=== PATIENT | male | born 1980 | race Caucasian/White ===

== ENCOUNTER → 2017-05-19 09:21 | Outpatient (CLI) | payer OTHER, SELFPAY ==
[2017-05-19 10:29] LABS: AST(SGOT) 19 U/L (15-37); Alanine Aminotransfer ALT/SGPT 48 U/L (16-61); Albumin, Serum 3.9 g/dL (3.2-5.0); Alkaline Phosphatase 77 U/L (45-117); Anion Gap 7 (5-15); BUN 12 mg/dL (7-18); BUN/Creat Ratio 12.1 RATIO (10-20); Calcium,Total 8.9 mg/dL (8.5-10.1); Chloride 106 mmol/L (98-107); EST Glomerular Filtration Rate 90 mL/min (>60); Est Glom Filt Rate - Afr Amer 109 mL/min (>60); Globulin 3.9 g/dL (2.2-4.2); Glucose 81 mg/dL (74-106); Potassium 3.9 mmol/L (3.5-5.1); Protein, Total 7.8 g/dL (6.4-8.2); Sodium Level 140 mmol/L (136-145)
== END ==
PROVIDERS: Family Provider Family Medicine; PCP Family Medicine; Visit Provider Family Medicine
DX: N17.9 Acute kidney failure, unspecified (principal); K83.4 Spasm of sphincter of Oddi
CPT/HCPCS: 36415; 80048; 80076

== ENCOUNTER → 2017-07-16 10:46 | Outpatient (CLI) | payer OTHER, SELFPAY ==
--- NOTE | 2017-07-16 10:49 | RAD_ITS ---
STUDY: X-RAY - RIGHT ELBOW REASON FOR EXAM: Male, 37 years old. Chronic elbow pain TECHNIQUE: 3 view(s) of the elbow. COMPARISON: None. FINDINGS: Normal visualized humerus, radius and ulna. Normal radiocapitellar and ulnotrochlear articulations. The soft tissue structures are unremarkable. RAD/Elbow min 3 Views IMPRESSION: Normal x-ray examination of the elbow. Electronically Signed: Harjeet Lowe MD at 23:57 EDT , Service support ,
== END ==
PROVIDERS: Family Provider Family Medicine; PCP Family Medicine; Visit Provider Family Medicine
DX: M25.521 Pain in right elbow (principal)
CPT/HCPCS: 73080

== ENCOUNTER 2017-09-24 20:56 | Emergency (ER) | payer OTHER, SELFPAY ==
[2017-09-24 20:56] VITALS: BP 127/94; PULSE 100; RESP 16; TEMP 36.8; O2SAT 97; BMI 31.6
--- NOTE | 2017-09-24 20:56 | DT_ITS ---
This patient was seen during an EMR downtime September 17, 2017 - September 24, 2017. This patient may have a combination of paper and electronic documentation or all paper documentation. All documentation is viewable within the e-chart portion of [facility] for each patient visit.
--- NOTE | 2017-09-24 21:40 | RAD_ITS ---
STUDY: X-RAY - LEFT WRIST REASON FOR EXAM: Male, 37 years old. Pain TECHNIQUE: 3 view(s) of the wrist were obtained. COMPARISON: None. FINDINGS: There is no evidence of fracture or dislocation. There are no significant degenerative changes. There are no radiodense foreign bodies. RAD/Wrist min 3 Views IMPRESSION: No fracture or dislocation. Electronically Signed: Hilario Juan, at 22:30 EDT Tel , Service support ,
--- NOTE | 2017-09-24 22:24 | ED.VISSUMM ---
- ER Visit Summary Date of Service: 09/24/17 Chief Complaint: Left wrist sprain History of Present Illness: The patient is a 37 M who was playing catch with his son when he went to catch the ball that was in the dirt. He states that the glove hand in contact with the ground is not sure if he hyperextended the wrist but he had pain in between the radius and the ulna distally. He states this happened again and cause worsening pain he states the pain continues to hurt him. Physical Examination: Afebrile vital signs are stable Gen: Well-nourished well-developed Head: Normocephalic atraumatic Eyes: Perrl EOMI ENT: TMs clear no rhinorrhea moist mucous membranes Neck: Supple no lymphadenopathy no JVD nontender CVS: Regular rate rhythm no murmurs normal S1-S2 Respiratory: No distress clear to auscultation bilaterally chest nontender Abdomen: Soft nontender nondistended normal bowel sounds no masses Back: Nontender Extremity: The patient has tenderness to palpation distal wrist. He has pain with movement of the radius against the ulna Skin: Normal color no rash Neuro: alert orientated ?3 CN II-XII intact normal strength sensation reflexes gait cerebellar Psych: Normal affect normal mood Test Results: Wrist films were negative for fracture Emergency Department Course and Treatment: We will treat this as a wrist sprain he will follow-up if not improving. He will use a Velcro splint. Ice and ibuprofen Impression: 1. Left wrist sprain This note was generated with [employer] dictation software. It may contain incorrect words, spelling, and punctuation that were not noted in review of the chart prior to signing ED Disposition - Plan for ED Patient: Disposition: Home or Assisted Living Chief Complaint: Upper Extremity Injury Instructions: ED Sprain Wrist Referrals: Dyllan Carlson MD [Primary Care Provider] - 10-14 Days if not better
== END 2017-09-24 23:07 | disposition home or self-care (01) ==
PROVIDERS: Emergency Provider Emergency Medicine; Family Provider Family Medicine; PCP Family Medicine
DX: S63.502A Unspecified sprain of left wrist, initial encounter (principal); X58.XXXA Exposure to other specified factors, initial encounter; Y93.9 Activity, unspecified; Y92.9 Unspecified place or not applicable
CPT/HCPCS: 73110; 99283

== ENCOUNTER → 2018-01-08 22:03 | Outpatient (CLI) | payer OTHER, SELFPAY ==
[2018-01-08 23:07] LABS: AST(SGOT) 27 U/L (15-37); Alanine Aminotransfer ALT/SGPT 42 U/L (16-61); Albumin, Serum 3.8 g/dL (3.2-5.0); Alkaline Phosphatase 78 U/L (45-117); Bilirubin, Direct < 0.05 mg/dL (0.00-0.30); Globulin 3.7 g/dL (2.2-4.2); Lipase 87 U/L (73-393); Protein, Total 7.5 g/dL (6.4-8.2)
== END ==
PROVIDERS: Family Provider Family Medicine; PCP Family Medicine; Referring Provider Family Medicine; Visit Provider Family Medicine
DX: K83.4 Spasm of sphincter of Oddi (principal); K76.0 Fatty (change of) liver, not elsewhere classified
CPT/HCPCS: 80076; 83690

== ENCOUNTER → 2018-05-25 15:41 | Outpatient (CLI) | payer OTHER, SELFPAY ==
[2018-05-25 17:22] LABS: AST(SGOT) 16 U/L (15-37); Alanine Aminotransfer ALT/SGPT 41 U/L (16-61); Albumin, Serum 3.9 g/dL (3.2-5.0); Alkaline Phosphatase 70 U/L (45-117); Anion Gap 7 (5-15); BUN 10 mg/dL (7-18); Calcium,Total 8.3 mg/dL (8.5-10.1); Chloride 109 mmol/L (98-107); Creatinine, Serum 1.11 mg/dL (0.70-1.30); EST Glomerular Filtration Rate 79 mL/min (>60); Est Glom Filt Rate - Afr Amer 95 mL/min (>60); Globulin 3.9 g/dL (2.2-4.2); Glucose 89 mg/dL (74-106); Protein, Total 7.8 g/dL (6.4-8.2); Sodium Level 141 mmol/L (136-145)
== END ==
PROVIDERS: Family Provider Family Medicine; PCP Family Medicine; Visit Provider Family Medicine
DX: K83.4 Spasm of sphincter of Oddi (principal); R10.9 Unspecified abdominal pain
CPT/HCPCS: 36415; 80053

== ENCOUNTER 2018-07-23 13:38 | Emergency (ER) | payer OTHER, SELFPAY ==
[2018-07-23 13:40] VITALS: BP 136/94; PULSE 104; RESP 18; TEMP 36.8; O2SAT 96; BMI 30.8
--- NOTE | 2018-07-23 13:58 | CT_ITS ---
STUDY: CT ABDOMEN AND PELVIS WITHOUT CONTRAST REASON FOR EXAM: Male, 38 years old. Pain following injury. RADIATION DOSAGE (If Supplied By Facility): CTDIvol = ( 21.24 ) mGy, DLP = ( 1252.22 ) mGycm TECHNIQUE: Transaxial images were obtained from the dome of the diaphragm to the symphysis pubis without oral contrast, and without intravenous contrast. Sagittal and coronal images were reconstructed. Individualized dose optimization techniques were used for this CT. COMPARISON: Comparison is made with prior study January 27, 2017. FINDINGS: The visualized lung bases are unremarkable. The visualized portions of the heart are within normal limits. There is decreased attenuation of the liver consistent with steatosis. There are surgical clips in the gallbladder fossa consistent with a prior cholecystectomy. Normal spleen. Normal pancreas. Normal bilateral adrenal glands. Normal right kidney. Normal left kidney. Normal visualized stomach. Normal small intestine. Normal colon. There are surgical clips in the region of the appendix consistent with a prior appendectomy. Normal abdominal aorta. Normal inferior vena cava. Normal retroperitoneum. Normal urinary bladder. Stable anterior periumbilical hernias containing fat. Normal osseous structures. CT/Abdomen/Pelvis without Cont IMPRESSION: Identification of the liver. Periumbilical ventral hernias. Electronically Signed: Mitchel Cavanaugh, at 15:01 EDT , Service support ,
--- NOTE | 2018-07-23 14:02 | ED.DCSUM_ITS ---
- ER Visit Summary Date of Service: 07/23/18 Chief Complaint: Abdominal pain History of Present Illness: The patient is a 38 M who picked up a lawnmower earlier developed left inguinal abdominal pain. He was hurting so much initially that he vomited, pain is easing up. No flank pain no testicle pain. He does have history of bilateral inguinal hernia surgery. Physical Examination: Otherwise normal exam, he has inguinal pain on the left, he has no testicle pain to palpation. Exam does not reveal a hernia, the inguinal canal is clear without any bowels. There is no palpation of any abdominal hernias. No guarding or rebound. His abdomen is slightly obese. Emergency Department Course and Treatment: Because of the tenderness in the abdomen and since he is somewhat obese a CT was obtained. This was negative. This is likely a strain of the abdominal wall muscles. He is told to take care discharge stable condition use proper lifting technique, otherwise he can be discharged Disposition: discharged in stable condition Impression: Abdominal wall strain This note was generated with [employer] dictation software. It may contain incorrect words, spelling, and punctuation that were not noted in review of the chart prior to signing ED Disposition - Plan for ED Patient: Referrals: Dyllan Carlson MD [Primary Care Provider] -
--- NOTE | 2018-07-23 15:22 | ED.DEP ---
ED Disposition - Plan for ED Patient: Disposition: Home or Assisted Living Instructions: ED Abdominal Pain Unkn Cause Referrals: Dyllan Carlson MD [Primary Care Provider] - 3-5 Days
== END 2018-07-23 15:32 | disposition home or self-care (01) ==
PROVIDERS: Emergency Provider Emergency Medicine; Family Provider Family Medicine; PCP Family Medicine
DX: S39.011A Strain of muscle, fascia and tendon of abdomen, initial encounter (principal); X50.0XXA Overexertion from strenuous movement or load, initial encounter; Y93.9 Activity, unspecified; Y92.9 Unspecified place or not applicable; J45.909 Unspecified asthma, uncomplicated
CPT/HCPCS: 74176; 99282

== ENCOUNTER → 2018-07-30 13:23 | Outpatient (CLI) | payer OTHER, SELFPAY ==
[2018-07-23 13:40] VITALS: BMI 30.8
--- NOTE | 2018-07-30 13:26 | ECHOCS_ITS ---
Reason For Study: Diastolic Dysfunction Procedure This was a 2D Doppler, Color Flow transthoracic echocardiogram. The study was technically difficult. Contrast injection was performed. Exam performed in department. Left Ventricle Normal LV size. Mild concentric left ventricular hypertrophy. Left ventricular systolic function is normal. The estimated ejection fraction is 65 %. No evidence for diastolic dysfunction. No regional wall motion abnormalities noted. Right Ventricle Normal RV size. Normal systolic function. Atria Normal left atrium. Normal right atrium. No doppler evidence for ASD. Mitral Valve There is no mitral annular calcification. Normal mitral valve. Trivial mitral valve insufficiency. Tricuspid Valve Normal tricuspid valve. Trivial tricuspid valve insufficiency. Unable to estimate RV systolic pressure/pulmonary artery pressure due to technically difficult study. Aortic Valve Trisinus/trileaflet aortic valve. Normal aortic valve. Pulmonic Valve The pulmonic valve is not well visualized. Mild (1+) pulmonic valve insufficiency. Great Vessels Normal sized aortic root. Pericardium/Pleural No pericardial effusion. Medication 22 gauge I.V. with prn adaptor inserted into left arm. Diluted definity 1ml given slow IV push to enhance endocardial definition. MMode/2D Measurements & Calculations LVIDd: 4.9 cm IVSd: 1.3 cm Ao root diam: 3.7 cm LVIDs: 2.9 cm LVPWd: 1.4 cm RVDd: 4.0 cm FS: 40.6 % LAV(MOD-bp): 57.9 ml LVAd ap4: 33.3 cm2 SV(MOD-sp4): 66.6 ml LAV(MOD-bp) Indexed: 24.7 ml/m2 EDV(MOD-sp4): 111.6 ml LAV(MOD-sp2): 50.9 ml EDV(sp4-el): 114.3 ml LAV(MOD-sp4): 52.7 ml LVAs ap4: 20.2 cm2 ESV(MOD-sp4): 45.0 ml ESV(sp4-el): 44.7 ml EF(MOD-sp4): 59.7 % EF(sp4-el): 60.9 % SV(sp4-el): 69.7 ml LA A4 area: 20.3 cm2 RA A4 area: 16.3 cm2 Time Measurements MV dec time: 0.19 sec Doppler Measurements & Calculations MV E max naif: 78.5 cm/sec Lat Peak E' Naif: 16.1 cm/sec Med Peak E' Naif: 9.1 cm/sec MV A max naif: 78.5 cm/sec E/E' lat: 4.9 E/E' med: 8.6 MV E/A: 1.0 MV V2 max: 78.9 cm/sec MV P1/2t max naif: 75.7 cm/sec Ao V2 max: 123.6 cm/sec MV max P.5 mmHg MV P1/2t: 61.0 msec Ao max P.1 mmHg MV V2 mean: 51.5 cm/sec MV mean P.2 mmHg MV dec slope: 363.2 cm/sec2 MV V2 VTI: 19.5 cm MVA(P1/2t): 3.6 cm2 LV V1 max: 113.1 cm/sec PA V2 max: 105.9 cm/sec LV V1 max P.1 mmHg Interpretation Summary The study was technically difficult. Contrast injection was performed. Left ventricular systolic function is normal. The estimated ejection fraction is 65 %. Mild concentric left ventricular hypertrophy. Trivial mitral valve insufficiency. Trivial tricuspid valve insufficiency. Mild (1+) pulmonic valve insufficiency. Unable to estimate RV systolic pressure/pulmonary artery pressure due to technically difficult study. No evidence for diastolic dysfunction. Ordering Physician: Dyllan Carlson Referring Physician: Dyllan Carlson Performed By: Tam Woodruff RCS
== END ==
PROVIDERS: Family Provider Family Medicine; PCP Family Medicine; Referring Provider Family Medicine; Visit Provider Family Medicine
DX: I51.9 Heart disease, unspecified (principal)
CPT/HCPCS: 93306; Q9957; A4216; C8929

== ENCOUNTER → 2018-09-01 | Outpatient (CLI) | payer OTHER, SELFPAY ==
[2018-09-01 15:33] LABS: AST(SGOT) 22 U/L (15-37); Alanine Aminotransfer ALT/SGPT 38 U/L (16-61); Albumin, Serum 3.7 g/dL (3.2-5.0); Alkaline Phosphatase 75 U/L (45-117); Bilirubin, Direct 0.12 mg/dL (0.00-0.30); Globulin 3.2 g/dL (2.2-4.2); Protein, Total 6.9 g/dL (6.4-8.2)
== END | disposition home or self-care (01) ==
LOC: LAB 14:09
PROVIDERS: Family Provider Family Medicine; PCP Family Medicine; Visit Provider Family Medicine
DX: K83.4 Spasm of sphincter of Oddi (principal)
CPT/HCPCS: 36415; 80076

== ENCOUNTER 2019-09-09 12:38 | Outpatient (RCR) | payer OTHER, SELFPAY ==
[2019-09-09 13:40] LABS: Erythrocyte Sedimentation Rate 38 mm/hr (0-15)
[2019-09-09 13:41] LABS: Hemoglobin 13.3 g/dL (13.0-16.5); Mean Corp Hgb Conc 32.4 g/dL (32-36); Mean Corpuscular Volume 83.2 fL (80-94); Mean Platelet Vol. 8.8 fl (6.2-12.0); Platelet Count 304 K/mm3 (150-450); RBC Distribution Width CV 12.9 % (11.6-14.6); RBC Distribution Width SD 39.2 fl (35.1-43.9); Red Blood Count 4.93 M/mm3 (4.6-6.2); White Blood Count 6.4 K/mm3 (4.4-11.0)
[2019-09-09 13:52] LABS: ALB/GLOB Ratio 0.8 RATIO (0.9-2.4); AST(SGOT) 26 U/L (15-37); Alanine Aminotransfer ALT/SGPT 68 U/L (16-61); Albumin, Serum 3.2 g/dL (3.2-5.0); Alkaline Phosphatase 87 U/L (45-117); Anion Gap 7 (5-15); BUN 15 mg/dL (7-18); BUN/Creat Ratio 16.8 RATIO (10-20); Calcium,Total 8.8 mg/dL (8.5-10.1); Chloride 106 mmol/L (98-107); Creatinine, Serum 0.89 mg/dL (0.70-1.30); EST Glomerular Filtration Rate 101 mL/min (>60); Est Glom Filt Rate - Afr Amer 122 mL/min (>60); Globulin 3.9 g/dL (2.2-4.2); Glucose 91 mg/dL (74-106); Potassium 3.8 mmol/L (3.5-5.1); Protein, Total 7.1 g/dL (6.4-8.2); Sodium Level 139 mmol/L (136-145)
[2019-09-09 14:20] LABS: Vancomycin, Trough Level 9.5 ug/mL (5.0-15.0)
== END 2019-09-09 18:00 | disposition home or self-care (01) ==
LOC: HHLAB 12:38
PROVIDERS: PCP Family Medicine
DX: L03.90 Cellulitis, unspecified (principal)
CPT/HCPCS: 80053; 80202; 85027; 85652; 86140